=== PATIENT | male | born 1995 | race Caucasian/White ===

== ENCOUNTER 2023-11-30 14:35 | Emergency (ER) | payer OTHER, SELFPAY ==
[2023-11-30 14:36] VITALS: BP 136/96; PULSE 100; RESP 20; TEMP 36.6; O2SAT 97; BMI 29.0
--- NOTE | 2023-11-30 14:44 | XR_ITS ---
[facility] [id number] Patient Name: MIKE BARTON MRN: [id number] date: 1995 Sex: M Assigned Patient Location: ER Current Patient Location: ER Accession/Order Number: [id number] Exam Date: 11/30/2023 14:50 Report Date: 11/30/2023 15:12 At the request of: CASH MALAGON Procedure: XR lumbar spine 2-3V EXAM: XR lumbar spine 2-3V HISTORY: atraumatic low back pain COMPARISON: Lumbar spine study dated 05/15/2021 TECHNIQUE: 3 views of the lumbar spine were obtained to include AP, lateral and directed lateral lumbosacral junction views. FINDINGS: Vertebral body heights are grossly well-maintained. Moderate disc space narrowing at L5-S1 appears slightly progressed. No obvious spondylolysis or spondylolisthesis. Facet joints appear grossly unremarkable. No definite acute fracture or dislocation. Slight interval convexity of the upper lumbar spine to the left. XR/XR lumbar spine 2-3V IMPRESSION: Slight interval convexity of the upper lumbar spine to the left. Moderate disc space narrowing at L5-S1 appears slightly progressed compared to the prior exam. Follow-up as needed. Electronically authenticated by: RAEANN HARDIN Date: 11/30/2023 15:12
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
[2023-11-30] MEDS: KETOROLAC TROMETHAMINE 60 MG/2 ML VIAL IM (14:56)
== END 2023-11-30 15:48 | disposition home or self-care (01) ==
PROVIDERS: Emergency Provider Emergency Medicine; PCP Family Medicine
DX: M54.50 Low back pain, unspecified (principal)
CPT/HCPCS: 72100; 96372; 99284; J1885